=== PATIENT | male | born 1980 | race Caucasian/White ===

== ENCOUNTER → 2016-06-22 | Outpatient (CLI) | payer MEDICAID, OTHER ==
[~2016-06-22] MED LIST: ACHD5005 PO; BACL20TA PO; BUPR1PAT2 TD; CLON0.5T3 PO; CYCL5TAB PO; DIAZ10TA3 PO; DICY20TA57 PO; DIVA500T PO; HALO5TAB PO; HYDR50TA76 PO; METO10TA3 PO; NF-ESOM40C PO; OMEP20CA12 PO; ONDAN4ODT PO; OXYC-202 PO; PNT40TEC PO; PRM25T PO; SUCR1TAB PO; SUCR1TAB36 PO; TAPE50TA PO
--- NOTE | 2016-06-22 14:59 | Diagnostic Imaging Report ---
PROCEDURE: MRI lumbar spine. TECHNIQUE: Multiplanar, multisequence MRI of the lumbar spine was performed without contrast. INDICATION: Low back pain. FINDINGS: There is straightening of the lumbar spine curvature may relate to muscle spasm or positional. The alignment of the posterior spinal line is satisfactory. The vertebral body heights are preserved. There is minimal disc height loss at L5-S1. There is developmental, relatively narrow AP dimension of the spinal canal in the lumbar spine. There is mild endplate edema around L4-L5 and L5-S1 levels. There is unremarkable appearance of the cauda equina and the conus medullaris. T12-L1: No disc herniation. No spinal canal or foramina stenosis. L1-L2: No disc herniation, no spinal canal or foramina stenosis. L2-L3: No disc herniation. There is mild facet hypertrophy. No spinal canal or foramina stenosis. L3-L4: No disc herniation. There is mild facet and ligamentous hypertrophy. No central canal stenosis. There is mild narrowing of the lateral recess bilaterally. The foramina demonstrate mild bilateral stenosis. L4-L5, there is a diffuse disc bulge associated with moderate central canal stenosis reducing the AP dimension of the canal to 7 mm. There is bilateral moderate facet hypertrophy. There is bilateral severe lateral recess stenosis, compressing the descending L5 nerve roots. The foramina demonstrate bilateral moderate narrowing. L5-S1: There is a mild disc bulge and mild facet hypertrophy. No central canal stenosis. There is however bilateral moderate lateral recess stenosis encroaching upon the descending S1 nerve roots bilaterally. The foramina demonstrate bilateral moderate stenosis. IMPRESSION: There is a developmental relatively short AP dimension of the spinal canal with superimposed lower lumbar spine disc and facet degenerative changes. There is bilateral severe lateral recess stenosis at L4-L5 and bilateral moderate lateral recess stenosis at L5-S1. Other findings described above. Dictated by: Dictated on workstation # [id number]
== END ==
LOC: RAD 11:30
PROVIDERS: ATTEND Nurse Practitioner Family
DX: M54.2 Cervicalgia (principal)
CPT/HCPCS: 72148

== ENCOUNTER → 2016-07-01 | Outpatient (CLI) | payer MEDICAID, OTHER ==
[~2016-07-01] MED LIST changes: +ATIVAN; +DULO30CA48; +TIZA4TAB3; +VENL37.52
--- NOTE | 2016-07-01 13:01 | Diagnostic Imaging Report ---
PROCEDURE: MR imaging cervical spine without contrast. TECHNIQUE: Multiplanar, multisequence MR imaging of the cervical spine was performed without contrast. INDICATION: Neck pain. Findings: There is straightening of the cervical curvature in the upper cervical spine. The vertebral body heights are preserved. The disc heights are also preserved. Minimal disc desiccation in the upper to mid cervical spine levels is seen. There is soft tissue thickening along the posterior aspect of the nasopharynx. Etiology is uncertain. This could be lymphoid hyperplasia. ENT evaluation is suggested. The foramen magnum and upper cervical canal appear patent. There is a bone marrow edema around C5/6 discs compatible with Modic type I reactive changes. C2/3: There is no disc herniation. No central canal or lateral recess stenosis. There is mild facet hypertrophy with associated mild neural foramina narrowing bilaterally. C3/4: There is no significant disc herniation and no spinal calcinosis. There is bilateral mild foramina stenosis from facet hypertrophy. C4/5: There is no disc herniation. There is a mild to moderate left facet hypertrophy associated with moderate left neural foraminal stenosis. No significant foramina stenosis on the right side. No spinal canal stenosis at this level. C5/6: There is a left paracentral broad-based disc spur complex associated with moderate to severe spinal canal stenosis mostly affecting the left side of the canal and causing mild compression of the left side of the spinal cord. No cord signal abnormality is seen. The central canal demonstrate moderate stenosis reducing its AP dimension to 7 mm. The left paracentral region of the canal is compressed to a 5.7 mm in the AP dimension. There is associated prominent left uncovertebral and facet joint hypertrophy as well resulting in severe left neuroforaminal stenosis. The right neural foramen is patent. C6/7: No disc herniation, no spinal canal stenosis. There is bilateral mild foraminal narrowing related mainly to uncovertebral hypertrophy. C7/T1: No disc herniation, and no spinal canal stenosis. There is a foramina narrowing of mild to moderate degree bilaterally from uncovertebral hypertrophy. The spinal cord demonstrate no significant abnormality. IMPRESSION: 1. There is a moderate to severe spinal canal stenosis at C5/C6 level mostly involving the left side of the spinal canal from a left paracentral disc spur complex, resulting in compression of the left side of the spinal cord. No cord signal abnormality seen. 2. There is soft tissue thickening in the posterior aspect of the nasopharynx may relate to lymphoid hyperplasia from infection or inflammation. ENT examination is recommended. Report was faxed to office of MUKESH Urias by beata at 1:02 p.m. Dictated by: Dictated on workstation # [id number]
== END ==
LOC: RAD 11:31
PROVIDERS: ATTEND Nurse Practitioner Family
DX: M48.02 Spinal stenosis, cervical region (principal)
CPT/HCPCS: 72141

== ENCOUNTER 2016-07-05 16:16 | Emergency (ER) | payer MEDICAID, OTHER ==
[~2016-07-05] VITALS: Ht 180.3 cm; Wt 65.8 kg
[~2016-07-05 16:16] MED LIST changes: -ATIVAN; -DULO30CA48; -TIZA4TAB3; -VENL37.52
[2016-07-05 16:44] LABS: BASOPHILS % (AUTO) 0 % (0-10); EOSINOPHILS # (AUTO) 0.1 10^3/uL (0.0-0.3); EOSINOPHILS % (AUTO) 2 % (0-10); LYMPHOCYTES # (AUTO) 2.5 X 10^3 (1.0-4.0); LYMPHOCYTES % (AUTO) 30 % (12-44); MEAN CORPUSCULAR HEMOGLOBIN 29 PG (25-34); MEAN CORPUSCULAR HGB CONC 35 G/DL (32-36); MEAN CORPUSCULAR VOLUME 84 FL (80-99); MEAN PLATELET VOLUME 9.8 FL (7.4-10.4); MONOCYTES # (AUTO) 0.5 X 10^3 (0.0-1.0); MONOCYTES % (AUTO) 6 % (0-12); NEUTROPHILS # (AUTO) 5.2 X 10^3 (1.8-7.8); NEUTROPHILS % (AUTO) 62 % (42-75); PLATELET COUNT 212 10^3/uL (130-400); RED BLOOD COUNT 5.14 10^6/uL (4.35-5.85); RED CELL DISTRIBUTION WIDTH 13.7 % (10.0-14.5); WHITE BLOOD COUNT 8.4 10^3/uL (4.3-11.0)
[2016-07-05] MEDS ORDERED: DULO30CA48 (16:51)
[2016-07-05] MEDS ORDERED: VENL37.52 (16:51)
[2016-07-05] MEDS ORDERED: TIZA4TAB3 (16:51)
[2016-07-05] MEDS ORDERED: ATIVAN (16:52)
[2016-07-05 16:56] LABS: PROTHROMBIN TIME PATIENT 13.2 SEC (12.2-14.7)
[2016-07-05 17:05] LABS: ALANINE AMINOTRANSFERASE 13 U/L (0-55); ALBUMIN 4.4 G/DL (3.2-4.5); AMYLASE 48 U/L (25-125); ANION GAP 6 MMOL/L (5-14); ASPARTATE AMINO TRANSFERASE 13 U/L (5-34); BILIRUBIN,TOTAL 0.6 MG/DL (0.1-1.0); BLOOD UREA NITROGEN 9 MG/DL (7-18); BUN/CREATININE RATIO 12; CALCIUM 9.2 MG/DL (8.5-10.1); CARBON DIOXIDE 24 MMOL/L (21-32); CHLORIDE 110 MMOL/L (98-107); CREATINE KINASE 111 U/L (30-200); CREATININE SERUM 0.75 MG/DL (0.60-1.30); GFR ESTIMATED > 60; GLUCOSE 99 MG/DL (70-105); LIPASE 19 U/L (8-78); MAGNESIUM 2.2 MG/DL (1.8-2.4); POTASSIUM 3.5 MMOL/L (3.6-5.0); SODIUM 140 MMOL/L (135-145); TOTAL PROTEIN 6.7 G/DL (6.4-8.2)
[2016-07-05 17:07] LABS: ALCOHOL < 10 MG/DL (<10)
[2016-07-05 17:13] LABS: TROPONIN I < 0.30 NG/ML (<0.30)
--- NOTE | 2016-07-05 17:13 | Diagnostic Imaging Report ---
INDICATION: Chest pain. COMPARISON: 01/06/2016. FINDINGS: Single frontal view of the chest demonstrates normal heart size and pulmonary vascularity. The lungs are well aerated and clear. No large pleural effusion or pneumothorax is seen. The visualized osseous structures show no acute abnormalities. IMPRESSION: 1. No acute cardiopulmonary process. Dictated by: Dictated on workstation # [id number]
[2016-07-05 17:15] LABS: BILIRUBIN,URINE NEGATIVE (NEGATIVE); KETONES,URINE NEGATIVE (NEGATIVE); LEUKOCYTE ESTERASE ,URINE 1+ (NEGATIVE); NITRITE,URINE NEGATIVE (NEGATIVE); PH,URINE 8 (5-9); PROTEIN,URINE NEGATIVE (NEGATIVE); UROBILINOGEN,URINE NORMAL (NORMAL)
[2016-07-05 17:27] LABS: SQUAMOUS EPITHELIAL CELL,UR RARE /HPF; WBC,URINE 0-2 /HPF
--- NOTE | 2016-07-05 17:58 | ED General ---
General Chief Complaint: Chest Pain Stated Complaint: CP/NECK AND BACK PAIN Nursing Triage Note: ARRIVED VIA AMB WITH MULTIPLE COMPLAINTS - CHEST PAIN/SOA/HEART PALPITATIONS X2 DAYS, DIZZINESS STARTING TODAY, CHRONIC BACK AND NECK PAIN NOT CONTROLLED BY PERCOCET. PT S/O ALSO CHECKING INTO ER AT THIS TIME. PT WITH EXCESSIVE TWITCHING IM TALKING TO HIM. DENIES DRUG USE. Nursing Sepsis Screen: No Definite Risk Source of Information: Patient History of Present Illness Time Seen by Provider: 16:30 Initial Comments PT ARRIVES VIA POV ( GIRLFRIEND ALSO BEGIN SEEN FOR UNRELATED PROBLEM--MULTIPLE MRSA ABSCESSES) PT WITH MULTITUDE OF COMPLAINTS C/O CHEST PAIN STATES PAIN IS IN LEFT UPPER CHEST AND RADIATES DOWN LEFT ARM X 3 DAYS STATES LEFT ARM WAS SHAKING C/O FEELING LIKE IT IS HARD TO BREATHE C/O DIZZINESS--FEELS LIKE EVERYTHING IS SPINNING STATES HE WAS STARTING TO SEE SPOTS C/O DRY MOUTH C/O SWELLING SENSATION IN RIGHT MID ABDOMEN C/O CHRONIC NECK AND BACK PAIN--NOT CONTROLLED BY PERCOCET --SEEMS TO BE PT'S MAIN COMPLAINT HAS CHRONIC ANXIETY AND ATIVAN ISN'T HELPING EITHER PCP: [facility], [employer] [facility] Allergies and Home Medications Allergies Coded Allergies: prochlorperazine (Verified Allergy, Severe, 01/11/16) "CAN'T BREATHE" sulfamethoxazole (Verified Allergy, Unknown, 07/05/16) trimethoprim (Verified Allergy, Unknown, 07/05/16) baclofen (Verified Adverse Reaction, Intermediate, BACK PAIN, 07/05/16) Home Medications Duloxetine HCl 30 Mg Capsule., #30 (Reported) Oxycodone HCl/Acetaminophen 1 Each Tablet, 1 EACH PO Q8H, #0 Prescribed by: LAURIE BRITO on 01/11/16 1103 Tizanidine HCl 4 Mg Tablet, #56 (Reported) Venlafaxine HCl 37.5 Mg Cap.er.24h, #30 (Reported) [Ativan] , (Reported) Constitutional: see HPI, dizziness EENTM: blurred vision (SEEING SPOTS), see HPI Respiratory: see HPI, No cough, short of breath Cardiovascular: see HPI, chest pain Gastrointestinal: see HPI, No abdominal pain, No nausea, No vomiting Genitourinary: no symptoms reported Musculoskeletal: see HPI, back pain, neck pain Skin: no symptoms reported Psychiatric/Neurological: See HPI, Anxiety Hematologic/Lymphatic: No Symptoms Reported Immunological/Allergic: no symptoms reported Past Ljaokwv-Xmmezi-Sxcblz Hx Patient Social History Alcohol Use: Past History (HISTORY OF ABUSE--USED TO DRINK "ALOT"--CLAIMS NONE FOR MONTHS, PER PT ON 07/05/16) Recreational Drug Use: Yes (PAST HX OF COCAINE, THC, "OTHERS"--+ IV DRUG USE-- STATES HE HAS BEEN CLEAN FOR 8 YEARS, PER PT ON 07/05/16) Drug of Choice: MARIJUANA Smoking Status: Current Everyday Smoker (1/2-1 PPD) Type Used: Cigarettes Recent Foreign Travel: No Contact w/Someone Who Travel: No Recent Infectious Disease Expo: No Recent Hopitalizations: Yes Immunizations Up To Date Tetanus Booster (TDap): Less than 5yrs Date of Influenza Vaccine: Jan 08, 2012 Seasonal Allergies Seasonal Allergies: No Surgeries HX Surgeries: Yes (EGD WITH SCLEROTHERAPY OF GASTRIC ULCER) Surgeries: Gallbladder Respiratory Hx Respiratory Disorders: No Cardiovascular Hx Cardiac Disorders: No Neurological Hx Neurological Disorders: No Reproductive System Hx Reproductive Disorders: No Genitourinary Hx Genitourinary Disorders: No Gastrointestinal Hx Gastrointestinal Disorders: Yes (CHRONIC ABDOMINAL PAIN AND NAUSEA/VOMITING- S/P KENAN, HX OF BLEEDING ULCERS WITH SCLEROTHERAPY. 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) Gastrointestinal Disorders: Gastroesophageal Reflux, Gastrointestinal Bleed, Ulcer, Gall Bladder Disease Musculoskeletal Hx Musculoskeletal Disorders: Yes (chronic neck/back pain) Musculoskeletal Disorders: Chronic Back Pain Endocrine Hx Endocrine Disorders: No HEENT HX ENT Disorders: Yes (ALL TEETH PULLED) Cancer Hx Cancer: No Psychosocial Hx Psychiatric Problems: Yes Behavioral Health Disorders: Anxiety, Bipolar, Depression Integumentary HX Skin/Integumentary Disorder: No Blood Transfusions Hx Blood Disorders: No Physical Exam Vital Signs Vital Sign - Last 12Hours 07/05/16 16:25 Temp 98.0 Pulse 76 Resp 16 B/P (MAP) 126/77 Pulse Ox 100 Capillary Refill : Less Than 3 Seconds General Appearance: No Apparent Distress, Anxious, Thin, Other (WALKS IN WITH A CANE; ANXIOUS, CONSTANT MOVEMENTS OF ARMS AND LEGS, WITH RANDOM "TWITCHING" OF ARMS / HANDS AND LEGS/ FEET, TALKS NON-STOP, DRAMATIC) HEENT: Other (EDENTULOUS) Neck: Full Range of Motion, Normal Inspection, Supple, Tender Lateral Respiratory: Normal Breath Sounds, No Accessory Muscle Use, No Respiratory Distress, Other (CHEST TENDER TO PALPATION) Cardiovascular: Regular Rate, Rhythm, No Edema, No JVD, No Murmur, Normal Peripheral Pulses Gastrointestinal: Normal Bowel Sounds, Non Tender, Soft, No Hernia, No Mass Back: Other (DIFFUSE TENDERNESS) Extremity: Normal Capillary Refill, Normal Range of Motion, Non Tender, No Calf Tenderness, No Pedal Edema Neurologic/Psychiatric: Alert, Oriented x3, No Motor/Sensory Deficits, casey saw operator II- XII Norm as Tested, Other (ANXIOUS, DRAMATIC) Skin: Normal Color, Warm/Dry, Tattoos/Piercings (EXTENSIVE TATTOOS) Progress/Results/Core Measures Results/Orders Lab Results Laboratory Tests Test 07/05/16 16:32 07/05/16 17:05 Range/Units White Blood Count 8.4 4.3-11.0 10^3/uL Red Blood Count 5.14 4.35-5.85 10^6/uL Hemoglobin 14.9 13.3-17.7 G/DL Hematocrit 43 40-54 % Mean Corpuscular Volume 84 80-99 FL Mean Corpuscular Hemoglobin 29 25-34 PG Mean Corpuscular Hemoglobin Concent 35 32-36 G/DL Red Cell Distribution Width 13.7 10.0-14.5 % Platelet Count 212 130-400 10^3/uL Mean Platelet Volume 9.8 7.4-10.4 FL Neutrophils (%) (Auto) 62 42-75 % Lymphocytes (%) (Auto) 30 12-44 % Monocytes (%) (Auto) 6 0-12 % Eosinophils (%) (Auto) 2 0-10 % Basophils (%) (Auto) 0 0-10 % Neutrophils # (Auto) 5.2 1.8-7.8 X 10^3 Lymphocytes # (Auto) 2.5 1.0-4.0 X 10^3 Monocytes # (Auto) 0.5 0.0-1.0 X 10^3 Eosinophils # (Auto) 0.1 0.0-0.3 10^3/uL Basophils # (Auto) 0.0 0.0-0.1 10^3/uL Prothrombin Time 13.2 12.2-14.7 SEC INR Comment 1.0 0.8-1.4 Activated Partial Thromboplast Time 30 24-35 SEC Sodium Level 140 135-145 MMOL/L Potassium Level 3.5 L 3.6-5.0 MMOL/L Chloride Level 110 H 98-107 MMOL/L Carbon Dioxide Level 24 21-32 MMOL/L Anion Gap 6 5-14 MMOL/L Blood Urea Nitrogen 9 7-18 MG/DL Creatinine 0.75 0.60-1.30 MG/DL Estimat Glomerular Filtration Rate > 60 BUN/Creatinine Ratio 12 Glucose Level 99 70-105 MG/DL Calcium Level 9.2 8.5-10.1 MG/DL Magnesium Level 2.2 1.8-2.4 MG/DL Total Bilirubin 0.6 0.1-1.0 MG/DL Aspartate Amino Transf (AST/SGOT) 13 5-34 U/L Alanine Aminotransferase (ALT/SGPT) 13 0-55 U/L Alkaline Phosphatase 37 L 40-136 U/L Total Creatine Kinase 111 30-200 U/L Creatine Kinase MB 0.7 <6.6 NG/ML Troponin I < 0.30 <0.30 NG/ML B-Type Natriuretic Peptide < 10.0 <100.0 PG/ML Total Protein 6.7 6.4-8.2 G/DL Albumin 4.4 3.2-4.5 G/DL Amylase Level 48 25-125 U/L Lipase 19 8-78 U/L Serum Alcohol < 10 <10 MG/DL Urine Color YELLOW Urine Clarity CLEAR Urine pH 8 5-9 Urine Specific [place] 1.025 H 1.016-1.022 Urine Protein NEGATIVE NEGATIVE Urine Glucose (UA) NEGATIVE NEGATIVE Urine Ketones NEGATIVE NEGATIVE Urine Nitrite NEGATIVE NEGATIVE Urine Bilirubin NEGATIVE NEGATIVE Urine Urobilinogen NORMAL NORMAL MG/DL Urine Leukocyte Esterase 1+ H NEGATIVE Urine RBC (Auto) NEGATIVE NEGATIVE Urine RBC NONE /HPF Urine WBC 0-2 /HPF Urine Squamous Epithelial Cells RARE /HPF Urine Crystals NONE /LPF Urine Bacteria NONE /HPF Urine Casts NONE /LPF Urine Mucus NEGATIVE /LPF Urine Culture Indicated NO Urine Opiates Screen NEGATIVE NEGATIVE Urine Oxycodone Screen POSITIVE H NEGATIVE Urine Methadone Screen NEGATIVE NEGATIVE Urine Propoxyphene Screen NEGATIVE NEGATIVE Urine Barbiturates Screen NEGATIVE NEGATIVE Ur Tricyclic Antidepressants Screen NEGATIVE NEGATIVE Urine Phencyclidine Screen NEGATIVE NEGATIVE Urine Amphetamines Screen NEGATIVE NEGATIVE Urine Methamphetamines Screen NEGATIVE NEGATIVE Urine Benzodiazepines Screen POSITIVE H NEGATIVE Urine Cocaine Screen NEGATIVE NEGATIVE Urine Cannabinoids Screen NEGATIVE NEGATIVE My Orders Orders - FRITZ WING DO Amylase (07/05/16 16:33) Cbc With Automated Diff (07/05/16 16:33) Comprehensive Metabolic Panel (07/05/16 16:33) Creatine Kinase (07/05/16 16:33) Creatine Kinase Mb (07/05/16 16:33) Lipase (07/05/16 16:33) Partial Thromboplastin Time (07/05/16:33) Protime With Inr (07/05/16:33) Troponin I (07/05/16 16:33) Chest 1 View, Ap/Pa Only (07/05/16 16:33) Ekg Tracing (07/05/16:33) BNP (07/05/16:33) Monitor-Rhythm Ecg Trace Only (07/05/16 16:33) Alcohol (07/05/16 16:33) Drug Screen Stat (Urine) (07/05/16 16:33) Magnesium (07/05/16 16:33) Ua Culture If Indicated (07/05/16 16:33) Vital Signs/I&O Blood Pressure Mean: 93 Progress Note : Progress Note NO DETERIORATION IN PT'S CONDITION DURING ER STAY ECG Initial ECG Impression Time: 16:30 Initial ECG Rate: 80 Initial ECG Rhythm: Normal Sinus Initial ECG Comparisson: No Previous ECG Available Diagnostic Imaging Comments CXR--NO ACUTE PROCESS, PER RADIOLOGIST REPORT Reviewed: Reviewed by Me Departure Impression Impression: Primary Impression: Anxiety Additional Impressions: CHRONIC PAIN COMPLAINTS Chest wall pain Disposition: HOME, SELF-CARE Condition: Stable Departure-Patient Inst. Referrals: [facility] (PCP/Family) Primary Care Physician Patient Instructions: Anxiety, Adult (DC), Chest Pain That Is Not Caused by the Heart (DC) Add. Discharge Instructions: INCREASE YOUR WATER INTAKE --DRINK ENOUGH SO YOU ARE URINATING EVERY 2-3 HOURS WHILE AWAKE TYLENOL 1 GRAM / MOTRIN 800 MG 4 TIMES A DAY FOR PAIN FOLLOW UP WITH YOUR DR IN 2-3 DAYS IF NO BETTER All discharge instructions reviewed with patient and/or family. Voiced understanding. FRITZ WING DO July 05, 2016 17:58
[2016-07-05 18:10] VITALS: BP 127/73
== END 2016-07-05 18:10 | disposition home or self-care (01) ==
LOC: EDUNIT# 16:16 → ER 16:18
DX: F41.9 Anxiety disorder, unspecified (principal); M54.2 Cervicalgia; R07.89 Other chest pain; F17.210 Nicotine dependence, cigarettes, uncomplicated; F13.90 Sedative, hypnotic, or anxiolytic use, unspecified, uncomplicated; F11.90 Opioid use, unspecified, uncomplicated
CPT/HCPCS: 36415; 71010; 80053; 80306; 80320; 81000; 82150; 82550; 82553; 83690; 83735; 83880; 84484; 85025; 85610; 85730; 93005; 93041

== ENCOUNTER 2018-03-15 21:37 | Emergency (ER) | payer SELFPAY, MEDICAID, OTHER | END 2018-03-15 22:33 | disposition home or self-care (01) | LOC: ER 21:37 ==

== ENCOUNTER 2018-05-12 11:09 | Emergency (ER) | payer SELFPAY ==
[~2018-05-12] VITALS: Ht 180.3 cm; Wt 72.6 kg
[~2018-05-12 11:09] MED LIST changes: +ATIVAN; +DIAZ10TA3; +DULO30CA48; -OXYC-202 PO; +OXYC1TAB12 PO; +TIZA4TAB3; +VENL37.52
[2018-05-12] MEDS ORDERED: NS IV 1000 ML 1,000 ML IV ONE (11:27)
[2018-05-12 11:32] LABS: BASOPHILS # (AUTO) 0.1 10^3/uL (0.0-0.1); BASOPHILS % (AUTO) 1 % (0-10); EOSINOPHILS # (AUTO) 0.3 10^3/uL (0.0-0.3); EOSINOPHILS % (AUTO) 4 % (0-10); HEMATOCRIT 47 % (40-54); HEMOGLOBIN 16.5 G/DL (13.3-17.7); LYMPHOCYTES # (AUTO) 2.4 X 10^3 (1.0-4.0); LYMPHOCYTES % (AUTO) 30 % (12-44); MEAN CORPUSCULAR HEMOGLOBIN 29 PG (25-34); MEAN CORPUSCULAR HGB CONC 35 G/DL (32-36); MEAN CORPUSCULAR VOLUME 84 FL (80-99); MEAN PLATELET VOLUME 9.9 FL (7.4-10.4); MONOCYTES # (AUTO) 0.8 X 10^3 (0.0-1.0); MONOCYTES % (AUTO) 10 % (0-12); NEUTROPHILS # (AUTO) 4.4 X 10^3 (1.8-7.8); NEUTROPHILS % (AUTO) 55 % (42-75); PLATELET COUNT 248 10^3/uL (130-400)
[2018-05-12] MEDS ORDERED: KETOROLAC 30 MG/ML VIAL IVP STA (11:38)
[2018-05-12] MEDS ORDERED: ONDANSETRON 4 MG/2 ML (SDV) Z0FRAN IVP ONE ×2 (11:45→15:45)
[2018-05-12 11:49] LABS: ALANINE AMINOTRANSFERASE 17 U/L (0-55); ALBUMIN 4.7 GM/DL (3.2-4.5); ALKALINE PHOSPHATASE 53 U/L (40-136); BILIRUBIN,TOTAL 0.3 MG/DL (0.1-1.0); BUN/CREATININE RATIO 11; CALCIUM 9.7 MG/DL (8.5-10.1); CARBON DIOXIDE 20 MMOL/L (21-32); CHLORIDE 107 MMOL/L (98-107); CREATININE SERUM 0.82 MG/DL (0.60-1.30); GFR ESTIMATED > 60; GLUCOSE 95 MG/DL (70-105); POTASSIUM 4.3 MMOL/L (3.6-5.0); SODIUM 137 MMOL/L (135-145); TOTAL PROTEIN 7.5 GM/DL (6.4-8.2)
--- NOTE | 2018-05-12 12:06 | ED Abdominal Pain ---
General Chief Complaint: Abdominal/GI Problems Stated Complaint: BILAT SIDES AND LOWER BACK PAIN/PRESSURE Source of Information: Patient Exam Limitations: No Limitations History of Present Illness Date Seen by Provider: May 12, 2018 Time Seen by Provider: 11:22 Initial Comments Here with report right lower quadrant and right back pain that has been going on for about a week and a half. States it does hurt to urinate sometimes and he feels agrees had some discharge. Also complains of swelling to the right side of the abdomen and now is transferred to the left side. States pain radiates up to his shoulder. Has previous cholecystectomy. Concerned because of history of drug use but has stopped methamphetamine for the last few months. She admits to occasionally drinking alcohol and occasionally using marijuana. Does smoke cigarettes. Denies fevers but states he just feels bad. States pain is causing her to breathe faster and then he is given anxious and hyperventilating. Denies blood in stool or urine. Timing/Duration: 1 Week, Changing Over Time, Getting Worse Severity/Quality: Moderate, Aching Location: RLQ, Flank Radiation: Back Activities at Onset: None Modifying Factors: Worsens With Movement; Improves With Resting Associated Symptoms: Back Pain; No Chest Pain, No Fever/Chills; Nausea/Vomiting , Shortness of Air; No Weakness Allergies and Home Medications Allergies Coded Allergies: prochlorperazine (Verified Allergy, Severe, 05/12/18) "CAN'T BREATHE" sulfamethoxazole (Verified Allergy, Unknown, 05/12/18) trimethoprim (Verified Allergy, Unknown, 05/12/18) baclofen (Verified Adverse Reaction, Intermediate, BACK PAIN, 05/12/18) Patient Home Medication List Home Medication List Reviewed: Yes Review of Systems Review of Systems Constitutional: see HPI, chills; No fever; weakness EENTM: No Symptoms Reported Respiratory: See HPI Cardiovascular: Denies Chest Pain, Denies Edema Gastrointestinal: Abdominal Pain, Nausea Genitourinary: See HPI Musculoskeletal: see HPI, back pain Skin: no symptoms reported Psychiatric/Neurological: Anxiety, Weakness All Other Systems Reviewed Negative Unless Noted: Yes Past Hqytbbb-Qlkzfm-Ytutzn Hx Past Med/Social Hx: Reviewed Nursing Past Med/Soc Hx Patient Social History Alcohol Use: Occasionally Uses Recreational Drug Use: Yes Drug of Choice: CANNIBUS Smoking Status: Current Everyday Smoker Type Used: Cigarettes 2nd Hand Smoke Exposure: Yes Recent Foreign Travel: No Contact w/Someone Who Travel: No Recent Hopitalizations: No Immunizations Up To Date Tetanus Booster (TDap): Less than 5yrs Date of Influenza Vaccine: Jan 08, 2012 Seasonal Allergies Seasonal Allergies: No Past Medical History Surgeries: Yes (EGD WITH SCLEROTHERAPY OF GASTRIC ULCER) Gallbladder Respiratory: No Cardiac: No Neurological: No Reproductive Disorders: No Genitourinary: No Gastrointestinal: Yes Gastroesophageal Reflux, Gastrointestinal Bleed, Ulcer, Gall Bladder Disease Musculoskeletal: Yes (chronic neck/back pain) Chronic Back Pain Endocrine: No HEENT: No Cancer: No Psychosocial: Yes Anxiety, Bipolar, Depression Integumentary: No Blood Disorders: No Family Medical History Reviewed Nursing Family Hx No Pertinent Family Hx Physical Exam Vital Signs Vital Signs - First Documented 05/12/18 11:15 Temp 96.8 Pulse 96 Resp 16 B/P (MAP) 133/88 (103) Pulse Ox 99 Capillary Refill : Height/Weight/BMI Height: 5'11.00" Weight: 150lbs. 0oz. [id number]; 18.9 BMI Method:Stated General Appearance: WD/WN, no apparent distress HEENT: PERRL/EOMI, pharynx normal Neck: full range of motion, supple Respiratory: lungs clear, normal breath sounds Cardiovascular: regular rate, rhythm, no murmur Gastrointestinal: soft; No guarding, No rebound; tenderness (right lower quadrant and left lower quadrant as well as right flank) Extremities: non-tender, normal inspection Back: normal inspection, no CVA tenderness, no vertebral tenderness Neurologic/Psychiatric: alert, oriented x 3 Skin: normal color, warm/dry Progress/Results/Core Measures Results/Orders Lab Results Laboratory Tests Test 05/12/18 11:23 05/12/18 12:00 Range/Units White Blood Count 8.0 4.3-11.0 10^3/uL Red Blood Count 5.61 4.35-5.85 10^6/uL Hemoglobin 16.5 13.3-17.7 G/DL Hematocrit 47 40-54 % Mean Corpuscular Volume 84 80-99 FL Mean Corpuscular Hemoglobin 29 25-34 PG Mean Corpuscular Hemoglobin Concent 35 32-36 G/DL Red Cell Distribution Width 14.0 10.0-14.5 % Platelet Count 248 130-400 10^3/uL Mean Platelet Volume 9.9 7.4-10.4 FL Neutrophils (%) (Auto) 55 42-75 % Lymphocytes (%) (Auto) 30 12-44 % Monocytes (%) (Auto) 10 0-12 % Eosinophils (%) (Auto) 4 0-10 % Basophils (%) (Auto) 1 0-10 % Neutrophils # (Auto) 4.4 1.8-7.8 X 10^3 Lymphocytes # (Auto) 2.4 1.0-4.0 X 10^3 Monocytes # (Auto) 0.8 0.0-1.0 X 10^3 Eosinophils # (Auto) 0.3 0.0-0.3 10^3/uL Basophils # (Auto) 0.1 0.0-0.1 10^3/uL Sodium Level 137 135-145 MMOL/L Potassium Level 4.3 3.6-5.0 MMOL/L Chloride Level 107 98-107 MMOL/L Carbon Dioxide Level 20 L 21-32 MMOL/L Anion Gap 10 5-14 MMOL/L Blood Urea Nitrogen 9 7-18 MG/DL Creatinine 0.82 0.60-1.30 MG/DL Estimat Glomerular Filtration Rate > 60 BUN/Creatinine Ratio 11 Glucose Level 95 70-105 MG/DL Calcium Level 9.7 8.5-10.1 MG/DL Corrected Calcium 8.5-10.1 MG/DL Total Bilirubin 0.3 0.1-1.0 MG/DL Aspartate Amino Transf (AST/SGOT) 18 5-34 U/L Alanine Aminotransferase (ALT/SGPT) 17 0-55 U/L Alkaline Phosphatase 53 40-136 U/L C-Reactive Protein High Sensitivity 0.13 0.00-0.50 MG/DL Total Protein 7.5 6.4-8.2 GM/DL Albumin 4.7 H 3.2-4.5 GM/DL Urine Color YELLOW Urine Clarity CLEAR Urine pH 8 5-9 Urine Specific [place] 1.015 L 1.016-1.022 Urine Protein NEGATIVE NEGATIVE Urine Glucose (UA) NEGATIVE NEGATIVE Urine Ketones NEGATIVE NEGATIVE Urine Nitrite NEGATIVE NEGATIVE Urine Bilirubin NEGATIVE NEGATIVE Urine Urobilinogen NORMAL NORMAL MG/DL Urine Leukocyte Esterase 1+ H NEGATIVE Urine RBC (Auto) NEGATIVE NEGATIVE Urine RBC NONE /HPF Urine WBC NONE /HPF Urine Crystals NONE /LPF Urine Bacteria NEGATIVE /HPF Urine Casts NONE /LPF Urine Mucus NEGATIVE /LPF Urine Culture Indicated NO Urine Opiates Screen NEGATIVE NEGATIVE Urine Oxycodone Screen NEGATIVE NEGATIVE Urine Methadone Screen NEGATIVE NEGATIVE Urine Propoxyphene Screen NEGATIVE NEGATIVE Urine Barbiturates Screen NEGATIVE NEGATIVE Ur Tricyclic Antidepressants Screen NEGATIVE NEGATIVE Urine Phencyclidine Screen NEGATIVE NEGATIVE Urine Amphetamines Screen NEGATIVE NEGATIVE Urine Methamphetamines Screen NEGATIVE NEGATIVE Urine Benzodiazepines Screen NEGATIVE NEGATIVE Urine Cocaine Screen NEGATIVE NEGATIVE Urine Cannabinoids Screen POSITIVE H NEGATIVE My Orders Orders - BOGDAN TIAN MD Saline Lock/Iv-Start (05/12/18 11:27) Ns Iv 1000 Ml (Sodium Chloride 0.9%) (05/12/18 11:27) Comprehensive Metabolic Panel (05/12/18 11:27) Hs C Reactive Protein (05/12/18 11:27) Drug Screen Stat (Urine) (05/12/18 11:27) Ua Culture If Indicated (05/12/18 11:27) Cbc With Automated Diff (05/12/18 11:27) Ketorolac Injection (Toradol Injection) (05/12/18 11:38) Ondansetron Injection (Zofran Injectio (05/12/18 11:45) Chlam Dna Probe (05/12/18 11:52) Neis Mark Dna Urine Test (05/12/18 11:52) Ct Abdomen/Pelvis W (05/12/18 12:47) Fentanyl Injection (Sublimaze Injection (05/12/18 12:51) Ondansetron Injection (Zofran Injectio (05/12/18 15:45) Medications Given in ED Current Medications Medications Dose Ordered Sig/Saadia Route Start Time Stop Time Status Last Admin Dose Admin Ondansetron HCl 4 mg ONCE ONCE IVP 05/12/18 11:45 05/12/18 11:46 DC 05/12/18 11:46 4 MG Sodium Chloride 1,000 ml @ 0 mls/hr Q0M ONCE IV 05/12/18 11:27 05/12/18 11:29 DC 05/12/18 11:36 1,000 MLS/HR Vital Signs/I&O 05/12/18 11:15 Temp 96.8 Pulse 96 Resp 16 B/P (MAP) 133/88 (103) Pulse Ox 99 Progress Progress Note : Progress Note Seen and evaluated. IV, labs, UA, normal saline 1 L bolus, Zofran 4 mg IV and Toradol 30 mg IV ordered. Anticipate CT scan pending UA. This was discussed with the patient as well. Monitor patient. CT abdomen and pelvis ordered. Labs relatively normal. 1535: CT results reviewed with the patient. He does have constipation features. There is a trace amount of fluid in the pelvis although no identified source or issues other than constipation. I did discuss with the patient regarding this and return precautions. Constipation will be addressed outpatient. Zofran 4 mg IV ordered as patient is complaining of some nausea but otherwise feels better knowing the results currently. Discharged home with return precautions. Patient verbalize understanding instructions and agreement with plan. Diagnostic Imaging Diagonstic Imaging: CT Plain Films/CT/US/NM/MRI: abdomen, pelvis Comments NAME: EVELIO MELO [facility] REC#: [id number] PT STATUS: REG ER : 1980 PHYSICIAN: BOGDAN TIAN MD ADMIT DATE: 05/12/18/ER Signed Date of Exam: 05/12/18 CT ABDOMEN/PELVIS W PROCEDURE: CT abdomen and pelvis with contrast. TECHNIQUE: Multiple contiguous axial images were obtained through the abdomen and pelvis after administration of intravenous contrast. Auto Exposure Controls were utilized during the CT exam to meet ALARA standards for radiation dose reduction. INDICATION: Right lower quadrant and flank pain. COMPARISON: None FINDINGS: Lung bases are clear. The gallbladder surgically absent. Solid organs and vascular structures and small bowel are normal. There is mild constipation throughout the colon. There is a trace amount of free fluid in the deep pelvis which is abnormal in a male patient. However, the source is not identifiable. What is thought to represent the appendix appears normal. There is no inflammatory process within the abdomen or pelvis. Distal ureters and urinary bladder are grossly normal. Prostate is not enlarged. Inguinal regions are grossly intact. Bony structures normal. IMPRESSION: 1. Small amount of free fluid within the pelvis which is abnormal in a male patient. No obvious acute appendicitis is identified. Recommend followup if patient's symptoms do not resolve. 2. No inflammatory process, mass, lymphadenopathy or abscess. 3. Mild constipation without overt bowel obstruction. Dictated by: Dictated on workstation # [id number] Dict: 05/12/18 1418 Trans: 05/12/18 1448 Interpreted by: SUDHA BUSTILLO Electronically signed by: SUDHA BUSTILLO 05/12/18 1448 Departure Impression Primary Impression: Abdominal pain, right lateral Disposition: 01 HOME, SELF-CARE Condition: Stable Departure-Patient Inst. Decision time for Depature: 15:40 Referrals: NO,LOCAL PHYSICIAN (PCP/Family) Primary Care Physician Patient Instructions: Acute Abdomen (Belly Pain), Adult (DC), Constipation, Adult (DC) Add. Discharge Instructions: All discharge instructions reviewed with patient and/or family. Voiced understanding. Clear liquid or light diet for the next 24-48 hours and then advance as tolerated. It is important that you drink plenty of fluids. You may try over-the -counter enema such as fleets enema that he can purchase at the pharmacy. He may try [id number] MiraLAX or the generic one capful twice daily for the next 3 days and then one capful daily thereafter to keep stools soft. You may increase or decrease the dose as needed. Follow up with your Dr. in a few days for recheck. Return for worse pain especially in the right lower quadrant, fever , vomiting, inability to drink, weakness or other concerns as needed. You may take Tylenol/acetaminophen 1000 mg every 8 hours as needed for pain. You may take ibuprofen 600 mg every 8 hours as needed for pain. BOGDAN TIAN MD May 12, 2018 12:06
[2018-05-12 12:10] LABS: BILIRUBIN,URINE NEGATIVE (NEGATIVE); CLARITY,URINE CLEAR; COLOR,URINE YELLOW; GLUCOSE, URINE (UA) NEGATIVE (NEGATIVE); KETONES,URINE NEGATIVE (NEGATIVE); LEUKOCYTE ESTERASE ,URINE 1+ (NEGATIVE); NITRITE,URINE NEGATIVE (NEGATIVE); PH,URINE 8 (5-9); PROTEIN,URINE NEGATIVE (NEGATIVE); UROBILINOGEN,URINE NORMAL (NORMAL)
[2018-05-12 12:26] LABS: AMPHETAMINE SCREEN, URINE NEGATIVE (NEGATIVE); BARBITURATE SCREEN URINE NEGATIVE (NEGATIVE); BENZODIAZEPINES SCREEN URINE NEGATIVE (NEGATIVE); CANNABINOID SCREEN, URINE POSITIVE (NEGATIVE); COCAINE SCREEN URINE NEGATIVE (NEGATIVE); METHADONE STAT NEGATIVE (NEGATIVE); METHAMPHETAMINE SCREEN URINE S NEGATIVE (NEGATIVE); OPIATE SCREEN URINE NEGATIVE (NEGATIVE); OXYCODONE STAT NEGATIVE (NEGATIVE); PROPOXYPHENE STAT NEGATIVE (NEGATIVE); TRICYCLIC ANTIDEPRESSANTS SCRE NEGATIVE (NEGATIVE)
[2018-05-12 12:36] LABS: BACTERIA,URINE NEGATIVE /HPF
[2018-05-12] MEDS ORDERED: fentaNYL INJECTION 100 MCG/2 ML AMP IVP STA (12:51)
--- NOTE | 2018-05-12 14:31 | Diagnostic Imaging Report ---
PROCEDURE: CT abdomen and pelvis with contrast. TECHNIQUE: Multiple contiguous axial images were obtained through the abdomen and pelvis after administration of intravenous contrast. Auto Exposure Controls were utilized during the CT exam to meet ALARA standards for radiation dose reduction. INDICATION: Right lower quadrant and flank pain. COMPARISON: None FINDINGS: Lung bases are clear. The gallbladder surgically absent. Solid organs and vascular structures and small bowel are normal. There is mild constipation throughout the colon. There is a trace amount of free fluid in the deep pelvis which is abnormal in a male patient. However, the source is not identifiable. What is thought to represent the appendix appears normal. There is no inflammatory process within the abdomen or pelvis. Distal ureters and urinary bladder are grossly normal. Prostate is not enlarged. Inguinal regions are grossly intact. Bony structures normal. IMPRESSION: 1. Small amount of free fluid within the pelvis which is abnormal in a male patient. No obvious acute appendicitis is identified. Recommend followup if patient's symptoms do not resolve. 2. No inflammatory process, mass, lymphadenopathy or abscess. 3. Mild constipation without overt bowel obstruction. Dictated by: Dictated on workstation # [id number]
[2018-05-12 15:46] VITALS: BP 111/79
== END 2018-05-12 15:46 | disposition home or self-care (01) ==
LOC: EDUNIT# 11:09 → ER 11:11
DX: R10.31 Right lower quadrant pain (principal); K21.9 Gastro-esophageal reflux disease without esophagitis; F41.9 Anxiety disorder, unspecified; F31.9 Bipolar disorder, unspecified; F15.10 Other stimulant abuse, uncomplicated; F12.10 Cannabis abuse, uncomplicated; F17.210 Nicotine dependence, cigarettes, uncomplicated; Z88.8 Allergy status to other drugs, medicaments and biological substances; Z88.2 Allergy status to sulfonamides; Z87.19 Personal history of other diseases of the digestive system; Z88.6 Allergy status to analgesic agent; Z90.49 Acquired absence of other specified parts of digestive tract
CPT/HCPCS: 36415; 74177; 80053; 80306; 81000; 85025; 86141; 87491; 87591